=== PATIENT | male | born 1940 | race African-American/Black ===

== ENCOUNTER 2019-03-05 14:21 | Inpatient (IN) | payer MEDICARE, OTHER ==
[~2019-03-05] VITALS: Ht 172.7 cm; Wt 64.0 kg
[2019-03-05 18:05] LABS: BASOPHILS % 0.6 % (0.0-2.0); EOSINOPHILS % 2.4 % (0.0-5.0); HEMOGLOBIN. 11.6 g/dL (14.0-18.0); MEAN CORPUSCULAR HEMOGLOBIN 28.6 pg (28.0-32.0); MEAN CORPUSCULAR VOLUME 86.5 fL (80.0-94.0); MEAN PLATELET VOLUME 10.3 fl (7.4-10.4); MONOCYTES % 12.1 % (2.0-8.0); NEUTROPHILS % 68.9 % (40.0-76.0); PLATELET 129 x1000/uL (130-400); RED BLOOD CELL COUNT 4.05 mill/uL (4.7-6.1); RED CELL DISTRIBUTION WIDTH 13.8 % (11.6-14.6)
[2019-03-05 18:11] LABS: CHLORIDE 104 mEq/L (98-107)
[2019-03-05] MEDS ORDERED: ASPIRIN 81MG TABLET PO ONE (19:00)
[2019-03-05] MEDS ORDERED: ACETAMINOPHEN 325MG TABLET PO PRN (20:45)
[2019-03-05] MEDS ORDERED: MAGNESIUM/ALUMINUM HYDROXIDE/SIMETHICONE 30ML UDC PO PRN (20:45)
[2019-03-05] MEDS ORDERED: LORAZEPAM 0.5MG TABLET PO PRN (20:45)
[2019-03-05] MEDS ORDERED: DOCUSATE SODIUM 100MG CAPSULE PO PRN (20:45)
[2019-03-05] MEDS ORDERED: ONDANSETRON HCL 4MG/2ML INJ IV PRN (20:45)
[2019-03-05] MEDS ORDERED: HYDROCODONE/ACETAMINOPHEN 5/325MG TABLET PO PRN (20:45)
[2019-03-05] MEDS ORDERED: HYDROCODONE/ACETAMINOPHEN 10/325MG TABLET PO PRN (20:45)
[2019-03-05] MEDS ORDERED: DIPHENHYDRAMINE 50MG/ML VIAL IV PRN (20:45)
[2019-03-05] MEDS: CLONIDINE 0.1MG TABLET PO PRN (23:47)
[2019-03-06] MEDS ORDERED: METF-416 MT (00:24)
[2019-03-06] MEDS ORDERED: HYDR-4135 MT (00:24)
[2019-03-06] MEDS ORDERED: HYDR-4134 MT (00:24)
[2019-03-06] MEDS ORDERED: METF-416 PO (00:24)
[2019-03-06 00:30] VITALS: BP 185/93
[2019-03-06] MEDS ORDERED: METOPROLOL TARTRATE 50MG TABLET PO NR (00:30)
[2019-03-06 02:10] LABS: CHLORIDE 106 mEq/L (98-107)
[2019-03-06] MEDS ORDERED: DEXTROSE 50% WATER 50ML SYRINGE IV PRN (03:15)
[2019-03-06] MEDS ORDERED: SODIUM POLYSTYRENE SULFONATE 15 G/60 ML BOT PO NR (04:00)
[2019-03-06] MEDS: GUAIFENESIN 200MG/10ML SUGAR FREE UDC PO PRN (05:12)
[2019-03-06 06:00] VITALS: BP 141/65
[2019-03-06] MEDS: CLONIDINE 0.1MG TABLET PO PRN (06:41)
[2019-03-06] MEDS: BLOOD SUGAR DIAGNOSTIC STRIP TEST SCH ×4 (06:46→21:00)
[2019-03-06] MEDS: INSULIN LISPRO 100 UNITS/ML SUBCUT SCH ×4 (06:46→21:00)
[2019-03-06 07:06] LABS: HEMATOCRIT. 29.7 % (42.0-52.0); MEAN CORPUSCULAR VOLUME 86.1 fL (80.0-94.0); MEAN PLATELET VOLUME 10.4 fl (7.4-10.4); PLATELET 136 x1000/uL (130-400); RED BLOOD CELL COUNT 3.45 mill/uL (4.7-6.1); RED CELL DISTRIBUTION WIDTH 13.7 % (11.6-14.6)
[2019-03-06 07:12] LABS: CHLORIDE 108 mEq/L (98-107)
[2019-03-06 07:35] LABS: LDL CHOLESTEROL 44 mg/dL (5-100)
[2019-03-06 07:37] LABS: HDL CHOLESTEROL 39 mg/dL (40-59); T4 FREE 1.45 ng/dL (0.76-1.46)
[2019-03-06 08:00] VITALS: BP 124/62
[2019-03-06] MEDS: METFORMIN HCL 500MG TABLET PO SCH ×2 (09:44→18:20)
[2019-03-06] MEDS: METOPROLOL TARTRATE 25MG TABLET PO SCH ×2 (09:45→20:47)
[2019-03-06] MEDS: HYDRALAZINE HCL 25MG TABLET PO SCH ×2 (09:45→20:47)
[2019-03-06 12:00] VITALS: BP 118/63
[2019-03-06] MEDS: GUAIFENESIN 600MG ER TABLET PO SCH ×2 (13:36→20:46)
[2019-03-06] MEDS: CETIRIZINE 10MG TABLET PO SCH (13:36)
[2019-03-06] MEDS: ASPIRIN 81MG EC TABLET PO SCH (13:36)
[2019-03-06] MEDS: FLUTICASONE PROPIONATE 50MCG/SPRAY BOTTLE BOTHNSTRLS SCH ×2 (15:17→20:47)
[2019-03-06 16:00] VITALS: BP 124/58
[2019-03-06 16:55] LABS: PHOSPHORUS 2.9 mg/dL (2.5-4.9)
[2019-03-06 19:56] LABS: PLATELET ESTIMATE NORMAL
[2019-03-06 20:00] VITALS: BP 148/64
[2019-03-07] VITALS: BP 149/62
[2019-03-07 04:00] VITALS: BP 145/59
[2019-03-07] MEDS: GUAIFENESIN 200MG/10ML SUGAR FREE UDC PO PRN (06:18)
[2019-03-07] MEDS: BLOOD SUGAR DIAGNOSTIC STRIP TEST SCH ×3 (06:18→17:00)
[2019-03-07] MEDS: INSULIN LISPRO 100 UNITS/ML SUBCUT SCH ×3 (06:18→17:00)
[2019-03-07 08:00] VITALS: BP 153/55
[2019-03-07] MEDS: CETIRIZINE 10MG TABLET PO SCH (08:08)
[2019-03-07] MEDS: METFORMIN HCL 500MG TABLET PO SCH ×2 (08:09→17:05)
[2019-03-07] MEDS: GUAIFENESIN 600MG ER TABLET PO SCH (08:09)
[2019-03-07] MEDS: ASPIRIN 81MG EC TABLET PO SCH (08:09)
[2019-03-07] MEDS: HYDRALAZINE HCL 25MG TABLET PO SCH (08:09)
[2019-03-07] MEDS: METOPROLOL TARTRATE 25MG TABLET PO SCH (08:10)
[2019-03-07] MEDS: FLUTICASONE PROPIONATE 50MCG/SPRAY BOTTLE BOTHNSTRLS SCH (08:10)
[2019-03-07] MEDS: IPRATROPIUM/ALBUTEROL 0.5-3(2.5)MG/3ML NEB HHN SCH ×2 (08:34→13:41)
[2019-03-07] MEDS ORDERED: CLOPIDOGREL 75MG TABLET PO SCH (10:45)
[2019-03-07] MEDS ORDERED: CETI10TA6 PO (11:19)
[2019-03-07] MEDS ORDERED: ASPI-1158 PO (11:19)
[2019-03-07] MEDS ORDERED: GUAI600T44 PO (11:19)
[2019-03-07] MEDS ORDERED: CLOP75TA15 PO (11:19)
[2019-03-07] MEDS ORDERED: METO25TA6 PO (11:19)
[2019-03-07 11:21] VITALS: BP 153/55
[2019-03-07 12:00] VITALS: BP 129/56
[2019-03-07] MEDS ORDERED: GADOBENATE DIMEGLUMINE 529 MG/ML 10ML IV ONE (14:05)
[2019-03-07 16:00] VITALS: BP 159/76
== END 2019-03-07 17:50 | disposition home health service (06) | DRG 189 ==
LOC: ER 14:21 → 8WST 19:41 → EDBEDREQTM 19:45 → EDBEDREQ 19:45 → ENRESERV 21:55 → 8WST 03-06
PROVIDERS: ADMIT Family Medicine Adult Medicine; ATTEND Family Medicine Adult Medicine
DX: J96.00 Acute respiratory failure, unspecified whether with hypoxia or hypercapnia (principal); I69.959 Hemiplegia and hemiparesis following unspecified cerebrovascular disease affecting unspecified side; J06.9 Acute upper respiratory infection, unspecified; E87.5 Hyperkalemia; I10 Essential (primary) hypertension; E78.00 Pure hypercholesterolemia, unspecified; E78.5 Hyperlipidemia, unspecified; E11.42 Type 2 diabetes mellitus with diabetic polyneuropathy; F32.9 Major depressive disorder, single episode, unspecified; M19.90 Unspecified osteoarthritis, unspecified site; J34.89 Other specified disorders of nose and nasal sinuses; F03.90 Unspecified dementia, unspecified severity, without behavioral disturbance, psychotic disturbance, mood disturbance, and anxiety; Z82.49 Family history of ischemic heart disease and other diseases of the circulatory system; Z90.79 Acquired absence of other genital organ(s); Z85.46 Personal history of malignant neoplasm of prostate
CPT/HCPCS: 36415; 70544; 70553; 71045; 80048; 80061; 82962; 83036; 83735; 83880; 84100; 84145; 84439; 84443; 84484; 93005; 93306; 93880; 93970; 94640; 97162; 97166; 99285; A9577; J1815; J7620

== ENCOUNTER 2020-04-08 18:01 | Inpatient (IN) | payer MEDICARE ==
[~2020-04-08] VITALS: Ht 182.9 cm; Wt 54.4 kg
[~2020-04-08 18:01] MED LIST: ASPI-1158 PO; CETI10TA6 PO; CLOP75TA15 PO; GUAI600T44 PO; HYDR-4134 MT; METF-416 PO; METO25TA6 PO
[2020-04-08 19:19] LABS: HEMATOCRIT. 41.4 % (42.0-52.0); HEMOGLOBIN. 13.2 g/dL (14.0-18.0); MEAN CORPUSCULAR VOLUME 87.7 fL (80.0-94.0); MEAN PLATELET VOLUME 11.3 fl (7.4-10.4); PLATELET 94 x1000/uL (130-400); RED BLOOD CELL COUNT 4.72 mill/uL (4.7-6.1); RED CELL DISTRIBUTION WIDTH 14.5 % (11.6-14.6)
[2020-04-08 19:24] LABS: CHLORIDE 97 mEq/L (98-107)
[2020-04-08 19:28] LABS: ETHANOL BLOOD < 10 mg/dL
[2020-04-08] MEDS ORDERED: CALCIUM GLUCONATE 100MG/ML 10ML VIAL IV ONE (19:45)
[2020-04-08] MEDS ORDERED: CALCIUM GLUCONATE 1000MG in DEXTROSE 5% WATER 50ML IV SCH (19:45)
[2020-04-08] MEDS ORDERED: SODIUM CHLORIDE 0.9% 1,000 ML IV SCH (19:45)
[2020-04-08] MEDS ORDERED: ASPIRIN 81MG TABLET PO SCH (19:45)
[2020-04-08 19:48] LABS: CREATINE KINASE 275 IU/L (39-308)
[2020-04-08 20:01] LABS: PLATELET ESTIMATE DECREASED
[2020-04-08 21:36] LABS: CLARITY URINE CLEAR (CLEAR); COLOR URINE YELLOW (YELLOW); KETONES URINE 1+ (NEGATIVE); LEUKOCYTE ESTERASE URINE NEGATIVE (NEGATIVE); NITRITE URINE NEGATIVE (NEGATIVE); OCCULT BLOOD URINE 1+ (NEGATIVE); PROTEIN URINE 2+ (NEGATIVE); SPECIFIC GRAVITY URINE 1.029 (1.005-1.030); UROBILINOGEN URINE 0.2 E.U./dL (0.2-1.0)
[2020-04-08 21:51] LABS: *AMPHETAMINES SCREEN URINE NEGATIVE (NEGATIVE); *BARBITURATES SCREEN URINE NEGATIVE (NEGATIVE); *BENZODIAZEPINES SCREEN URINE NEGATIVE (NEGATIVE); *COCAINE SCREEN URINE NEGATIVE (NEGATIVE); METHADONE URINE SCREEN NEGATIVE (NEGATIVE); OPIATES URINE SCREEN NEGATIVE (NEGATIVE)
[2020-04-08 21:52] LABS: CANNABINOID URINE SCREEN NEGATIVE (NEGATIVE); PHENCYCLIDINE URINE SCREEN NEGATIVE (NEGATIVE)
[2020-04-08] MEDS ORDERED: FUROSEMIDE 40MG/4ML VIAL IVP NR (22:15)
[2020-04-08] MEDS ORDERED: INSULIN REGULAR (HUMULIN R) 300UNITS/3ML VIAL IV NR (22:15)
[2020-04-08] MEDS ORDERED: SODIUM POLYSTYRENE SULFONATE 15 G/60 ML BOT PO NR (22:15)
[2020-04-08] MEDS ORDERED: NITROGLYCERIN OINT 1GM/INCH UDPKT TD NR (22:15)
[2020-04-09] VITALS (13 sets, daily range): BP systolic 133–169; BP diastolic 69–103
[2020-04-09] MEDS ORDERED: CLONIDINE 0.1MG TABLET PO PRN (01:00)
[2020-04-09] MEDS ORDERED: MAGNESIUM/ALUMINUM HYDROXIDE/SIMETHICONE 30ML UDC PO PRN (03:15)
[2020-04-09] MEDS ORDERED: ACETAMINOPHEN 325MG TABLET PO PRN (03:15)
[2020-04-09] MEDS ORDERED: DEXTROSE 50% WATER 50ML SYRINGE IV PRN ×2 (03:15)
[2020-04-09] MEDS ORDERED: HYDROCODONE/ACETAMINOPHEN 5/325MG TABLET PO PRN (03:15)
[2020-04-09] MEDS ORDERED: SODIUM CHLORIDE 0.9% 1,000 ML IV SCH (03:15)
[2020-04-09] MEDS ORDERED: ONDANSETRON HCL 4MG/2ML INJ IV PRN (03:15)
[2020-04-09] MEDS: BLOOD SUGAR DIAGNOSTIC STRIP TEST SCH ×4 (08:14→20:35)
[2020-04-09] MEDS ORDERED: METOPROLOL TARTRATE 25MG TABLET PO SCH (09:00)
[2020-04-09] MEDS: CETIRIZINE 10MG TABLET PO SCH (09:00)
[2020-04-09] MEDS ORDERED: HYDRALAZINE HCL 25MG TABLET PO SCH (09:00)
[2020-04-09] MEDS ORDERED: ENOXAPARIN 40MG/0.4ML SYR SUBCUT SCH (09:00)
[2020-04-09 09:08] LABS: HEMATOCRIT 39.9 % (42.0-52.0); HEMOGLOBIN 12.9 g/dL (14.0-18.0); MEAN CORPUSCULAR HEMOGLOBIN 28.3 pg (28.0-32.0); MEAN CORPUSCULAR VOLUME 87.8 fL (80.0-94.0); PLATELET 115 x1000/uL (130-400); RED BLOOD CELL COUNT 4.54 mill/uL (4.7-6.1); RED CELL DISTRIBUTION WIDTH 14.5 % (11.6-14.6)
[2020-04-09] MEDS ORDERED: ENALAPRIL 2.5MG/2ML VIAL 2ML IV PRN (09:15)
[2020-04-09 09:20] LABS: CHLORIDE 105 mEq/L (98-107)
[2020-04-09 09:36] LABS: CREATINE KINASE MB FRACTION 1.3 ng/mL (0.5-3.6)
[2020-04-09] MEDS: OMEPRAZOLE 20MG CAPSULE EXTENDED RELEASE PO SCH (12:11)
[2020-04-09] MEDS: CLOPIDOGREL 75MG TABLET PO SCH (12:11)
[2020-04-09] MEDS: ASPIRIN 81MG EC TABLET PO SCH (12:11)
[2020-04-09] MEDS: ENOXAPARIN 30MG/0.3ML SYR SUBCUT SCH (12:12)
[2020-04-09] MEDS: INSULIN LISPRO 100 UNITS/ML SUBCUT SCH ×4 (12:13→20:36)
[2020-04-09] MEDS ORDERED: HYDRALAZINE HCL 50MG TABLET PO SCH (17:00)
[2020-04-09 17:02] LABS: CREATINE KINASE MB FRACTION < 1.0 ng/mL (0.5-3.6)
[2020-04-10] VITALS (10 sets, daily range): BP systolic 138–164; BP diastolic 74–82
[2020-04-10] MEDS: SODIUM CHLORIDE 0.9% 1,000 ML IV SCH ×3 (00:37→08:25)
[2020-04-10 00:59] LABS: CREATINE KINASE MB FRACTION < 1.0 ng/mL (0.5-3.6)
[2020-04-10 06:50] LABS: HEMATOCRIT. 33.8 % (42.0-52.0); HEMOGLOBIN. 11.1 g/dL (14.0-18.0); MEAN CORPUSCULAR HEMOGLOBIN 28.4 pg (28.0-32.0); MEAN CORPUSCULAR VOLUME 86.9 fL (80.0-94.0); MEAN PLATELET VOLUME 11.3 fl (7.4-10.4); PLATELET 101 x1000/uL (130-400); RED BLOOD CELL COUNT 3.89 mill/uL (4.7-6.1); RED CELL DISTRIBUTION WIDTH 14.2 % (11.6-14.6)
[2020-04-10 06:54] LABS: CHLORIDE 111 mEq/L (98-107)
[2020-04-10 07:01] LABS: PHOSPHORUS 2.5 mg/dL (2.5-4.9)
[2020-04-10 07:02] LABS: LDL CHOLESTEROL 62 mg/dL (5-100)
[2020-04-10 07:03] LABS: HDL CHOLESTEROL 51 mg/dL (40-59)
[2020-04-10 07:44] LABS: PROSTRATE SPECIFIC AG TOTAL 0.06 ng/mL (0.0-4.0)
[2020-04-10] MEDS: BLOOD SUGAR DIAGNOSTIC STRIP TEST SCH ×2 (07:48→11:40)
[2020-04-10 07:55] LABS: HEPATITIS B SURFACE ANTIGEN NEGATIVE
[2020-04-10] MEDS: CETIRIZINE 10MG TABLET PO SCH (08:22)
[2020-04-10] MEDS: OMEPRAZOLE 20MG CAPSULE EXTENDED RELEASE PO SCH (08:22)
[2020-04-10] MEDS: CLOPIDOGREL 75MG TABLET PO SCH (08:22)
[2020-04-10] MEDS: ASPIRIN 81MG EC TABLET PO SCH (08:23)
[2020-04-10] MEDS: ENOXAPARIN 30MG/0.3ML SYR SUBCUT SCH (08:23)
[2020-04-10] MEDS: INSULIN LISPRO 100 UNITS/ML SUBCUT SCH ×2 (08:24→12:03)
[2020-04-10] MEDS ORDERED: POTASSIUM CHLORIDE 20MEQ TABLET SR PO NR (08:30)
[2020-04-10] MEDS ORDERED: MAGNESIUM 2 G PREMIX 50 ML IV NR (09:30)
[2020-04-10 14:20] LABS: PLATELET ESTIMATE DECREASED
[2020-04-12 15:11] LABS: A/G RATIO 0.9 (0.7-1.7); ALBUMIN 2.5 g/dL (2.9-4.4); ALPHA-1-GLOBULIN 0.3 g/dL (0.0-0.4); ALPHA-2-GLOBULIN 0.8 g/dL (0.4-1.0); BETA GLOBULIN 1.1 g/dL (0.7-1.3); GAMMA GLOBULINS 0.7 g/dL (0.4-1.8); GLOBULIN TOTAL 2.9 g/dL (2.2-3.9); M-SPIKE Not Observed g/dL (Not Observed); TOTAL PROTEIN SERUM 5.4 g/dL (6.0-8.5)
== END 2020-04-10 16:50 | DRG 64 ==
LOC: ER 18:01 → 5EST 22:13 → EDBEDREQ 22:15 → EDBEDREQTM 22:15 → EDBEDREQSVC 22:15 → ENRESERV 23:58
PROVIDERS: ADMIT Family Medicine Adult Medicine; ATTEND Family Medicine Adult Medicine
DX: I63.9 Cerebral infarction, unspecified (principal); I21.A1 Myocardial infarction type 2; N17.0 Acute kidney failure with tubular necrosis; E87.4 Mixed disorder of acid-base balance; I13.0 Hypertensive heart and chronic kidney disease with heart failure and stage 1 through stage 4 chronic kidney disease, or unspecified chronic kidney disease; I16.9 Hypertensive crisis, unspecified; I69.354 Hemiplegia and hemiparesis following cerebral infarction affecting left non-dominant side; J98.11 Atelectasis; E44.0 Moderate protein-calorie malnutrition; Z68.1 Body mass index [BMI] 19.9 or less, adult; D63.8 Anemia in other chronic diseases classified elsewhere; D69.6 Thrombocytopenia, unspecified; E11.22 Type 2 diabetes mellitus with diabetic chronic kidney disease; E11.65 Type 2 diabetes mellitus with hyperglycemia; E78.00 Pure hypercholesterolemia, unspecified; E78.5 Hyperlipidemia, unspecified; E83.52 Hypercalcemia; E87.5 Hyperkalemia; I50.9 Heart failure, unspecified; N18.9 Chronic kidney disease, unspecified; N40.0 Benign prostatic hyperplasia without lower urinary tract symptoms; R13.10 Dysphagia, unspecified; Z79.02 Long term (current) use of antithrombotics/antiplatelets; Z79.84 Long term (current) use of oral hypoglycemic drugs; Z79.899 Other long term (current) drug therapy; Z82.3 Family history of stroke; Z82.49 Family history of ischemic heart disease and other diseases of the circulatory system; Z83.3 Family history of diabetes mellitus; Z86.718 Personal history of other venous thrombosis and embolism; Z87.891 Personal history of nicotine dependence; Z79.82 Long term (current) use of aspirin; D72.829 Elevated white blood cell count, unspecified
CPT/HCPCS: 36415; 70551; 71045; 76770; 80048; 80053; 80061; 80305; 80320; 81003; 82140; 82330; 82550; 82553; 82570; 82962; 83036; 83605; 83735; 83880; 83970; 84100; 84153; 84155; 84156; 84165; 84443; 84484; 85025; 85027; 86803; 87340; 92523; 92610; 93005; 93306; 93970; 97162; 97166; 99291; J0610; J1650; J1815; J1940; J3475; J7030; J7060; G0103; G0480

== ENCOUNTER 2020-04-21 17:00 | Inpatient (IN) | payer MEDICARE ==
[~2020-04-21] VITALS: Ht 182.9 cm; Wt 60.0 kg
[2020-04-21 20:43] VITALS: BP 105/60
[2020-04-21 20:49] VITALS: BP 105/60
[2020-04-21] MEDS ORDERED: ACETAMINOPHEN 325MG TABLET PO PRN (21:30)
[2020-04-21] MEDS ORDERED: CLONIDINE 0.1MG TABLET PO PRN (21:30)
[2020-04-21] MEDS ORDERED: DEXTROSE 50% WATER 50ML SYRINGE IV PRN (21:30)
[2020-04-21] MEDS: METOPROLOL TARTRATE 25MG TABLET PO SCH (22:00)
[2020-04-21] MEDS: GUAIFENESIN 600MG ER TABLET PO SCH (22:02)
[2020-04-21] MEDS: AZITHROMYCIN 500 MG in DEXT 5% WATER 250 ML IV SCH (23:13)
[2020-04-21] MEDS: CEFTRIAXONE 1,000 MG in DEXTROSE 5% WATER 50 ML IV SCH (23:13)
[2020-04-22 00:43] VITALS: BP 103/64
[2020-04-22 04:00] VITALS: BP_SYST 131; BP_SYST 141; BP_DIAS 58; BP_DIAS 68
[2020-04-22 05:59] LABS: BASOPHILS % 0.3 % (0.0-2.0); HEMATOCRIT. 30.2 % (42.0-52.0); HEMOGLOBIN. 10.1 g/dL (14.0-18.0); MEAN CORPUSCULAR VOLUME 84.1 fL (80.0-94.0); MEAN PLATELET VOLUME 9.1 fl (7.4-10.4); MONOCYTES % 10.7 % (2.0-8.0); PLATELET 278 x1000/uL (130-400); RED CELL DISTRIBUTION WIDTH 14.3 % (11.6-14.6)
[2020-04-22] MEDS: BLOOD SUGAR DIAGNOSTIC STRIP TEST SCH ×4 (06:21→20:37)
[2020-04-22 08:00] VITALS: BP 127/65
[2020-04-22] MEDS: CETIRIZINE 10MG TABLET PO SCH (08:35)
[2020-04-22] MEDS: GUAIFENESIN 600MG ER TABLET PO SCH ×2 (08:35→20:37)
[2020-04-22] MEDS: CLOPIDOGREL 75MG TABLET PO SCH (08:35)
[2020-04-22] MEDS: ASPIRIN 81MG EC TABLET PO SCH (08:35)
[2020-04-22] MEDS: HYDRALAZINE HCL 25MG TABLET PO SCH ×2 (08:36→17:48)
[2020-04-22] MEDS: METOPROLOL TARTRATE 25MG TABLET PO SCH ×2 (08:36→20:37)
[2020-04-22] MEDS: DEXAMETHASONE 4MG/ML 1ML VIAL IV SCH (09:52)
[2020-04-22 12:00] VITALS: BP 133/61
[2020-04-22 12:11] LABS: PHOSPHORUS 3.1 mg/dL (2.5-4.9)
[2020-04-22] MEDS: POTASSIUM CHLORIDE 20MEQ TABLET SR PO SCH ×2 (12:56→14:38)
[2020-04-22 16:00] VITALS: BP 135/62
[2020-04-22] MEDS: INSULIN LISPRO 100 UNITS/ML SUBCUT SCH ×3 (17:10→20:47)
[2020-04-22 20:00] VITALS: BP 142/68
[2020-04-22] MEDS ORDERED: METFORMIN HCL 500MG TABLET PO SCH (20:00)
[2020-04-22] MEDS: ENOXAPARIN 30MG/0.3ML SYR SUBCUT SCH (20:37)
[2020-04-22] MEDS: CEFTRIAXONE 1,000 MG in DEXTROSE 5% WATER 50 ML IV SCH (21:34)
[2020-04-22] MEDS: AZITHROMYCIN 500 MG in DEXT 5% WATER 250 ML IV SCH (22:11)
[2020-04-23] VITALS: BP 111/60
[2020-04-23 04:00] VITALS: BP 140/62
[2020-04-23 05:40] LABS: BASOPHILS % 0.2 % (0.0-2.0); HEMATOCRIT. 32.8 % (42.0-52.0); HEMOGLOBIN. 10.9 g/dL (14.0-18.0); MEAN CORPUSCULAR HEMOGLOBIN 28.1 pg (28.0-32.0); MEAN CORPUSCULAR VOLUME 84.7 fL (80.0-94.0); MEAN PLATELET VOLUME 9.8 fl (7.4-10.4); MONOCYTES % 8.7 % (2.0-8.0); NEUTROPHILS % 80.1 % (40.0-76.0); PLATELET 294 x1000/uL (130-400); RED BLOOD CELL COUNT 3.87 mill/uL (4.7-6.1); RED CELL DISTRIBUTION WIDTH 14.3 % (11.6-14.6)
[2020-04-23 05:55] LABS: CHLORIDE 101 mEq/L (98-107)
[2020-04-23] MEDS: BLOOD SUGAR DIAGNOSTIC STRIP TEST SCH ×4 (06:09→20:44)
[2020-04-23 06:12] LABS: PHOSPHORUS 3.7 mg/dL (2.5-4.9)
[2020-04-23 08:00] VITALS: BP 121/67
[2020-04-23] MEDS: CETIRIZINE 10MG TABLET PO SCH (08:51)
[2020-04-23] MEDS: DEXAMETHASONE 4MG/ML 1ML VIAL IV SCH (08:51)
[2020-04-23] MEDS: ASPIRIN 81MG EC TABLET PO SCH (08:51)
[2020-04-23] MEDS: CLOPIDOGREL 75MG TABLET PO SCH (08:51)
[2020-04-23] MEDS: HYDRALAZINE HCL 25MG TABLET PO SCH ×2 (08:51→17:43)
[2020-04-23] MEDS: GUAIFENESIN 600MG ER TABLET PO SCH ×2 (08:52→21:24)
[2020-04-23] MEDS: METOPROLOL TARTRATE 25MG TABLET PO SCH ×2 (08:52→21:24)
[2020-04-23] MEDS: INSULIN LISPRO 100 UNITS/ML SUBCUT SCH ×4 (08:53→21:25)
[2020-04-23 12:00] VITALS: BP 136/63
[2020-04-23] MEDS: INSULIN GLARGINE UD 100 UNITS/ML SYR SUBCUT SCH (14:44)
[2020-04-23 16:00] VITALS: BP 145/59
[2020-04-23 20:00] VITALS: BP 136/68
[2020-04-23] MEDS: ENOXAPARIN 30MG/0.3ML SYR SUBCUT SCH (21:24)
[2020-04-23] MEDS: CEFTRIAXONE 1,000 MG in DEXTROSE 5% WATER 50 ML IV SCH (21:26)
[2020-04-23] MEDS: AZITHROMYCIN 500 MG in DEXT 5% WATER 250 ML IV SCH (22:09)
[2020-04-24] VITALS: BP 139/72
[2020-04-24 04:00] VITALS: BP 131/71
[2020-04-24] MEDS: BLOOD SUGAR DIAGNOSTIC STRIP TEST SCH ×4 (06:35→20:22)
[2020-04-24] MEDS: INSULIN LISPRO 100 UNITS/ML SUBCUT SCH ×4 (07:05→21:18)
[2020-04-24 07:25] LABS: BASOPHILS % 0.3 % (0.0-2.0); HEMATOCRIT. 32.9 % (42.0-52.0); HEMOGLOBIN. 10.9 g/dL (14.0-18.0); LYMPHOCYTES % 8.7 % (20.0-50.0); MEAN CORPUSCULAR VOLUME 84.3 fL (80.0-94.0); MEAN PLATELET VOLUME 9.3 fl (7.4-10.4); MONOCYTES % 9.7 % (2.0-8.0); NEUTROPHILS % 81.3 % (40.0-76.0); PLATELET 301 x1000/uL (130-400); RED CELL DISTRIBUTION WIDTH 14.1 % (11.6-14.6)
[2020-04-24 07:47] LABS: CHLORIDE 105 mEq/L (98-107)
[2020-04-24 08:00] VITALS: BP 153/66
[2020-04-24] MEDS: ASPIRIN 81MG EC TABLET PO SCH (08:42)
[2020-04-24] MEDS: METOPROLOL TARTRATE 25MG TABLET PO SCH ×2 (08:42→21:12)
[2020-04-24] MEDS: DEXAMETHASONE 4MG/ML 1ML VIAL IV SCH (08:42)
[2020-04-24] MEDS: GUAIFENESIN 600MG ER TABLET PO SCH ×2 (08:42→21:12)
[2020-04-24] MEDS: HYDRALAZINE HCL 25MG TABLET PO SCH ×2 (08:42→16:44)
[2020-04-24] MEDS: CETIRIZINE 10MG TABLET PO SCH (08:42)
[2020-04-24] MEDS: CLOPIDOGREL 75MG TABLET PO SCH (08:42)
[2020-04-24] MEDS: INSULIN GLARGINE UD 100 UNITS/ML SYR SUBCUT SCH (10:24)
[2020-04-24 12:00] VITALS: BP 154/76
[2020-04-24 16:00] VITALS: BP 143/58
[2020-04-24 18:54] LABS: BG BASE EXCESS 2.7 mmol/L (-2.0-2.0); BG CARBOXYHEMOGLOBIN 0.2 % (0.5-1.5); BG DEOXYHEMOGLOBIN 10.8 % (0.0-5.0); BG FRACTION INSPIRED OXYGEN 21; BG HCO3 ACT 25.4 mmol/L (22.0-26.0); BG METHEMOGLOBIN 0.1 % (0.0-1.5); BG OXYGEN SATURATION 89.2 % (92.0-98.5); BG OXYHEMOGLOBIN 88.9 % (94.0-97.0); BG PCO2 32.9 mmHg (35.0-45.0); BG PH 7.506 (7.350-7.450); BG PO2 55.3 mmHg (75.0-100.0); BG SAMPLE SITE RIGHT RADIAL; BG TOTAL HEMOGLOBIN 11.4 g/dL (12.0-18.0); BG VENT MODE ROOM AIR
[2020-04-24 20:16] VITALS: BP 161/77
[2020-04-24] MEDS ORDERED: AZITHROMYCIN 250 MG TABLET PO SCH (21:00)
[2020-04-24] MEDS: CEFTRIAXONE 1,000 MG in DEXTROSE 5% WATER 50 ML IV SCH (21:12)
[2020-04-24] MEDS: ENOXAPARIN 30MG/0.3ML SYR SUBCUT SCH (21:12)
[2020-04-25 00:34] VITALS: BP 141/75
[2020-04-25 04:00] VITALS: BP 133/76
[2020-04-25] MEDS: BLOOD SUGAR DIAGNOSTIC STRIP TEST SCH ×4 (06:40→21:00)
[2020-04-25 06:42] LABS: BASOPHILS % 0.1 % (0.0-2.0); HEMATOCRIT. 33.3 % (42.0-52.0); HEMOGLOBIN. 11.1 g/dL (14.0-18.0); LYMPHOCYTES % 10.6 % (20.0-50.0); MEAN CORPUSCULAR HEMOGLOBIN 28.1 pg (28.0-32.0); MEAN CORPUSCULAR VOLUME 84.5 fL (80.0-94.0); MEAN PLATELET VOLUME 8.9 fl (7.4-10.4); MONOCYTES % 9.5 % (2.0-8.0); NEUTROPHILS % 79.8 % (40.0-76.0); PLATELET 304 x1000/uL (130-400); RED BLOOD CELL COUNT 3.95 mill/uL (4.7-6.1); RED CELL DISTRIBUTION WIDTH 14.3 % (11.6-14.6)
[2020-04-25 06:50] LABS: CHLORIDE 107 mEq/L (98-107)
[2020-04-25] MEDS: INSULIN LISPRO 100 UNITS/ML SUBCUT SCH ×4 (07:10→21:00)
[2020-04-25 08:00] VITALS: BP 166/82
[2020-04-25] MEDS: ASPIRIN 81MG EC TABLET PO SCH (10:31)
[2020-04-25] MEDS: METOPROLOL TARTRATE 25MG TABLET PO SCH (10:31)
[2020-04-25] MEDS: GUAIFENESIN 600MG ER TABLET PO SCH (10:31)
[2020-04-25] MEDS: CLOPIDOGREL 75MG TABLET PO SCH (10:32)
[2020-04-25] MEDS: HYDRALAZINE HCL 25MG TABLET PO SCH ×2 (10:32→16:57)
[2020-04-25] MEDS: CETIRIZINE 10MG TABLET PO SCH (10:32)
[2020-04-25] MEDS: INSULIN GLARGINE UD 100 UNITS/ML SYR SUBCUT SCH (10:36)
[2020-04-25 12:00] VITALS: BP 158/72
[2020-04-25 16:00] VITALS: BP 126/78
[2020-04-25 20:40] VITALS: BP 135/75
[2020-04-26] MEDS: METOPROLOL TARTRATE 25MG TABLET PO SCH ×3 (00:18→23:55)
[2020-04-26] MEDS: ENOXAPARIN 30MG/0.3ML SYR SUBCUT SCH ×2 (00:18→23:56)
[2020-04-26] MEDS: GUAIFENESIN 600MG ER TABLET PO SCH ×3 (00:18→23:55)
[2020-04-26 00:43] VITALS: BP 164/75
[2020-04-26 04:00] VITALS: BP 165/86
[2020-04-26] MEDS: BLOOD SUGAR DIAGNOSTIC STRIP TEST SCH ×4 (05:54→21:00)
[2020-04-26 06:24] LABS: CHLORIDE 109 mEq/L (98-107)
[2020-04-26 07:02] LABS: HEMATOCRIT. 33.4 % (42.0-52.0); MEAN CORPUSCULAR HEMOGLOBIN 28.1 pg (28.0-32.0); PLATELET 287 x1000/uL (130-400); RED BLOOD CELL COUNT 3.93 mill/uL (4.7-6.1); RED CELL DISTRIBUTION WIDTH 14.5 % (11.6-14.6)
[2020-04-26 08:00] VITALS: BP 169/84
[2020-04-26] MEDS: INSULIN LISPRO 100 UNITS/ML SUBCUT SCH ×3 (08:18→17:23)
[2020-04-26] MEDS: CETIRIZINE 10MG TABLET PO SCH (09:04)
[2020-04-26] MEDS: CLOPIDOGREL 75MG TABLET PO SCH (09:04)
[2020-04-26] MEDS: ASPIRIN 81MG EC TABLET PO SCH (09:04)
[2020-04-26] MEDS: HYDRALAZINE HCL 25MG TABLET PO SCH ×2 (09:05→17:22)
[2020-04-26] MEDS: INSULIN GLARGINE UD 100 UNITS/ML SYR SUBCUT SCH (10:29)
[2020-04-26 12:00] VITALS: BP 160/72
[2020-04-26 12:28] LABS: PLATELET ESTIMATE NORMAL
[2020-04-26 16:00] VITALS: BP 170/70
[2020-04-26 20:00] VITALS: BP 153/73
[2020-04-27] VITALS: BP 167/76
[2020-04-27] MEDS: INSULIN LISPRO 100 UNITS/ML SUBCUT SCH ×4 (00:07→17:10)
[2020-04-27 04:00] VITALS: BP 172/79
[2020-04-27 07:23] LABS: BASOPHILS % 0.2 % (0.0-2.0); CHLORIDE 107 mEq/L (98-107); EOSINOPHILS % 0.3 % (0.0-5.0); HEMATOCRIT. 32.9 % (42.0-52.0); HEMOGLOBIN. 10.9 g/dL (14.0-18.0); LYMPHOCYTES % 7.4 % (20.0-50.0); MEAN CORPUSCULAR HEMOGLOBIN 27.8 pg (28.0-32.0); MONOCYTES % 9.6 % (2.0-8.0); NEUTROPHILS % 82.5 % (40.0-76.0); PLATELET 295 x1000/uL (130-400); RED BLOOD CELL COUNT 3.92 mill/uL (4.7-6.1); RED CELL DISTRIBUTION WIDTH 14.4 % (11.6-14.6)
[2020-04-27] MEDS: BLOOD SUGAR DIAGNOSTIC STRIP TEST SCH ×3 (07:26→17:25)
[2020-04-27 08:00] VITALS: BP 156/75
[2020-04-27] MEDS: GUAIFENESIN 600MG ER TABLET PO SCH (09:26)
[2020-04-27] MEDS: ASPIRIN 81MG EC TABLET PO SCH (09:26)
[2020-04-27] MEDS: CLOPIDOGREL 75MG TABLET PO SCH (09:26)
[2020-04-27] MEDS: CETIRIZINE 10MG TABLET PO SCH (09:26)
[2020-04-27] MEDS: METOPROLOL TARTRATE 25MG TABLET PO SCH (09:27)
[2020-04-27] MEDS: HYDRALAZINE HCL 25MG TABLET PO SCH (09:27)
[2020-04-27] MEDS: INSULIN GLARGINE UD 100 UNITS/ML SYR SUBCUT SCH (10:30)
[2020-04-27 12:00] VITALS: BP 153/63
[2020-04-27] MEDS ORDERED: HYDRALAZINE HCL 25MG TABLET PO SCH (15:00)
[2020-04-27 16:21] VITALS: BP 147/71
[2020-04-28] MEDS ORDERED: INSULIN GLARGINE UD 100 UNITS/ML SYR SUBCUT SCH (10:00)
== END 2020-04-27 19:00 | DRG 871 ==
LOC: 7EST 17:00
PROVIDERS: ADMIT Internal Medicine; ATTEND Internal Medicine
DX: A41.89 Other specified sepsis (principal); U07.1 COVID-19; J12.89 Other viral pneumonia; J96.01 Acute respiratory failure with hypoxia; I21.A1 Myocardial infarction type 2; I69.354 Hemiplegia and hemiparesis following cerebral infarction affecting left non-dominant side; N17.9 Acute kidney failure, unspecified; N39.0 Urinary tract infection, site not specified; E87.1 Hypo-osmolality and hyponatremia; E87.3 Alkalosis; K52.1 Toxic gastroenteritis and colitis; Z68.1 Body mass index [BMI] 19.9 or less, adult; N18.9 Chronic kidney disease, unspecified; I12.9 Hypertensive chronic kidney disease with stage 1 through stage 4 chronic kidney disease, or unspecified chronic kidney disease; D64.9 Anemia, unspecified; D69.6 Thrombocytopenia, unspecified; E11.22 Type 2 diabetes mellitus with diabetic chronic kidney disease; E11.65 Type 2 diabetes mellitus with hyperglycemia; E78.5 Hyperlipidemia, unspecified; E83.39 Other disorders of phosphorus metabolism; E83.42 Hypomagnesemia; E83.52 Hypercalcemia; E87.6 Hypokalemia; E11.649 Type 2 diabetes mellitus with hypoglycemia without coma; R65.20 Severe sepsis without septic shock; R13.10 Dysphagia, unspecified; E87.5 Hyperkalemia; T50.905A Adverse effect of unspecified drugs, medicaments and biological substances, initial encounter; Z86.718 Personal history of other venous thrombosis and embolism; Z79.82 Long term (current) use of aspirin; Z79.899 Other long term (current) drug therapy; Z79.4 Long term (current) use of insulin; Y92.89 Other specified places as the place of occurrence of the external cause; Z79.02 Long term (current) use of antithrombotics/antiplatelets; I95.9 Hypotension, unspecified; R19.7 Diarrhea, unspecified; R63.0 Anorexia; I69.398 Other sequelae of cerebral infarction
CPT/HCPCS: 36415; 36600; 71045; 80048; 82375; 82728; 82805; 82962; 83735; 84100; 84145; 85025; 86140; J0456; J0696; J1100; J1650; J1815; J7040; J7060